=== PATIENT | female | born 1995 | race Caucasian/White ===

== ENCOUNTER 2025-03-28 12:00 | Emergency (ER) | payer OTHER, SELFPAY ==
[2025-03-28 12:06] VITALS: BP 158/116; PULSE 117; RESP 18; TEMP 36.6; O2SAT 100
[2025-03-28 12:54] VITALS: BP 129/79; PULSE 101
--- OUTSIDE RECORDS SUMMARY | 2025-03-28 13:08 | XMS_ITS | Data Portability ---
Author Organization [place] [facility], Main Office Address [address] [place] [address] Assessment Encounter Date Assessment Date Assessment LastModified by Organization Details LastModified Time 03/19/2024 03/19/2024 Assessment: Mild OSAHS, AHI = 9 Plan: The following were reviewed and explained to the patient: primary care/referral note Lisman diagnostic sleep study 02/17/22 sleep onset = 61 minutes, REM onset = 181.5 minutes, AHI = 9, PLMI = 0 PAP compliance downloaded and interpreted x 20 minutes. Data reviewed and explained to the patient. Average apnea/hypopnea index (AHI) is 0.5. Patient used PAP > 4 hours ?% of the time. PAP is set at 4-19.5 cmH2O. PAP will be reset at 4-10 cmH2O until re-titration sleep study is done. Oxygen supplementation: none Patient is benefiting from PAP therapy. Encouraged patient to maintain PAP use more than 70% of the time. Statement of PAP use and benefits will be sent to the home care store. Educated the patient on problems and solutions associated with positive airway pressure (PAP) use. Difficulty tolerating pressure, mask leaks, intolerance of interface, nasal congestion, claustrophobic response, dry mouth, and unintentional mask removal during sleep were covered. Patient has some difficulty tolerating pressure. Patient is advised to practice wearing PAP daily while awake, lower pressure with or without sleeping on sides, activate PAP ramp feature, have blower checked to make sure pressure is set as prescribed and return to sleep center for consideration of auto-adjusting PAP therapy. Provided the patient with a list of local home care stores where positive airway pressure (PAP) units, accoutrement, and services are available. Home care store selection is based on patient's insurance carrier. Patient will setup an appointment with [facility] for supplies and pressure adjustments. A major predictor of success with use of PAP is follow-up with both the respiratory supplier and the treating physician. The respiratory supplier optimally will follow-up within two weeks after starting use while the treating physician optimally will follow-up within 90 days after starting therapy to assess adherence and effectiveness of treatment. The download results can show the treating physician information about adherence to treatment, residual AHI while on treatment and presence of large mask leakage. This information is especially helpful if the patient has residual sleepiness despite treatment. General information on sleep disordered breathing, evaluation of sleep disordered breathing, treatment with PAP therapy, and living with PAP therapy were covered. We discussed with the patient the impact of weight on: Sleep disordered breathing Hypertension We discussed with the patient the benefit of PAP therapy on: Sleep disordered breathing Headaches Hypertension Educated the patient on sleep hygiene measures. Relaxing rituals to rest easy, understanding foods with positive and negative impact on sleep, creating a peaceful sleep environment, timing of exercise, using herbal sleep aids, and practicing sleep-friendly meditation were covered. To determine how much sleep is needed, the patient will assess where she falls on the spectrum, examine what lifestyle factors such as work schedules and stress are affecting the quality and quantity of sleep. In general, adults need 7-9 hours of sleep. Educated the patient regarding foods that promote sleep. These include but are not limited to cherries, bananas, toast, oatmeal, and warm milk. Educated the patient regarding foods and drinks to avoid before bedtime. These include but are not limited to aged cheese, chocolate, spicy foods, tomato-based sauces, soy, ginseng tea and processed meat. Advocated influenza vaccination annually and pneumonia vaccination DAVID. Advocated weight loss through diet and exercise. Patient's ideal body weight according to height and gender is up to Encouraged patient to adjust caloric intake to maintain/achieve ideal body weight, emphasizing on fruits, vegetables, whole grains, and fat-free or low-fat products. These include lean meats, poultry, fish, beans, eggs, and nuts and foods that are low in saturated fats, trans-fats, cholesterol, salt (sodium), and glycemic index. Stressed the importance of regular exercise up to the patient's capacity limits. In this case, we recommend 20 min daily walking, 2 days a week of resistance training. Patient to monitor BP daily and bring records to PCP for further management. Follow-up: 1 week after titration sleep study [email or web address] Not available 03/19/2024 10:10:26 05/12/2024 05/12/2024 Assessment: Rhinitis Mild OSAHS, AHI = 9 Plan: The following were reviewed and explained to the patient: [facility]isman diagnostic sleep study 02/17/22 sleep onset = 61 minutes, REM onset = 181.5 minutes, AHI = 9, PLMI = 0 [facility] titration sleep study 04/20/24 sleep onset = 27 minutes, REM onset = 101.5 minutes, Martinez [employer] Daria small Vitera full face mask @ 7 cmH2O, PLMI = 3 PAP compliance downloaded and interpreted x 20 minutes. Data reviewed and explained to the patient. Average apnea/hypopnea index (AHI) is 0.7. Patient used PAP > 4 hours 28% of the time. PAP is set at 4-10 cmH2O. PAP will remain at 4-10 cmH2O. Oxygen supplementation: none Patient is benefiting from PAP therapy. Encouraged patient to maintain PAP use more than 70% of the time. Statement of PAP use and benefits will be sent to the home care store. Educated the patient on problems and solutions associated with positive airway pressure (PAP) use. Difficulty tolerating pressure, mask leaks, intolerance of interface, nasal congestion, claustrophobic response, dry mouth, and unintentional mask removal during sleep were covered. Patient has some difficulty tolerating pressure. Patient is advised to practice wearing PAP daily while awake, lower pressure with or without sleeping on sides, activate PAP ramp feature, have blower checked to make sure pressure is set as prescribed and return to sleep center for consideration of auto-adjusting PAP therapy. Provided the patient with a list of local home care stores where positive airway pressure (PAP) units, accoutrement, and services are available. Home care store selection is based on patient's insurance carrier. Patient will setup an appointment with [facility] for supplies and pressure adjustments. A major predictor of success with use of PAP is follow-up with both the respiratory supplier and the treating physician. The respiratory supplier optimally will follow-up within two weeks after starting use while the treating physician optimally will follow-up within 90 days after starting therapy to assess adherence and effectiveness of treatment. The download results can show the treating physician information about adherence to treatment, residual AHI while on treatment and presence of large mask leakage. This information is especially helpful if the patient has residual sleepiness despite treatment. General information on sleep disordered breathing, evaluation of sleep disordered breathing, treatment with PAP therapy, and living with PAP therapy were covered. We discussed with the patient the impact of weight on: Sleep disordered breathing Hypertension We discussed with the patient the benefit of PAP therapy on: Sleep disordered breathing Headaches Hypertension Educated the patient on sleep hygiene measures. Relaxing rituals to rest easy, understanding foods with positive and negative impact on sleep, creating a peaceful sleep environment, timing of exercise, using herbal sleep aids, and practicing sleep-friendly meditation were covered. To determine how much sleep is needed, the patient will assess where she falls on the spectrum, examine what lifestyle factors such as work schedules and stress are affecting the quality and quantity of sleep. In general, adults need 7-9 hours of sleep. Educated the patient regarding foods that promote sleep. These include but are not limited to cherries, bananas, toast, oatmeal, and warm milk. Educated the patient regarding foods and drinks to avoid before bedtime. These include but are not limited to aged cheese, chocolate, spicy foods, tomato-based sauces, soy, ginseng tea and processed meat. Advocated influenza vaccination annually and pneumonia vaccination DAVID. Advocated weight loss through diet and exercise. Patient's ideal body weight according to height and gender is up to 135 lbs. Encouraged patient to adjust caloric intake to maintain/achieve ideal body weight, emphasizing on fruits, vegetables, whole grains, and fat-free or low-fat products. These include lean meats, poultry, fish, beans, eggs, and nuts and foods that are low in saturated fats, trans-fats, cholesterol, salt (sodium), and glycemic index. Stressed the importance of regular exercise up to the patient's capacity limits. In this case, we recommend 20 min daily walking, 2 days a week of resistance training. Patient to monitor BP daily and bring records to PCP for further management. Follow-up: 1 year, April 2025 [facility] Not available 05/12/2024 09:56:39 Plan of Treatment Reminders Order Date Submit Date Provider Last Modified By Organization Details Last Modified Time Details Appointments Any 15 2025 08:15A Jono Durham MD Not available Not available Not available Lab None recorded. Referral None recorded. Procedures None recorded. Surgeries None recorded. Imaging polysomno gram, titration study - Please call patient to schedule. 2023 024 [facility]AN[facility]A [facility], [address] [place], [address], 04/24/2024 08:53:10 Medication Orders None recorded. Patient TargetsNo targets recorded. Patient InstructionsNo instructions recorded. Reason for Referral None Reported. Results Created Date Observation Date Name Description Value Unit Range Abnormal Flag Note LastModifiedBy Organization Detail LastModifiedTime 03/18/2002/17/2022 polys omnog marlo, diagn ostic , 6 yrs or older No observ ation record ed. [facility] Not Available 2023 11:15:10 04/24/2004/20/2024 polys omnog marlo, titra tion study No observ ation record ed. BAR[facility] [address] [place], [address], 04/24/2024 08:53:10 Result Notes None recorded. Problems Name Problem SNOMED Code Status Onset Date Resolution Date Notes Provider Name and Address Organization Details Recorded Time Obstructive sleep apnea syndrome 15250177 Active 024 Remy Durham MD [address] [facility], [facility] [address], [place], [address] , [employer] 10:10:30 Notes:[facility] titration sleep s tudy 04/20/24 sleep onset = 27 minutes, REM onset = 101.5 minutes, [employer] small Vitera full face mask @ 7 cmH2O, PLMI = 3 Medical History: Migraine headaches Obesity with mild OSAHS, AHI = 9, 02/17/22, on CPAP Procedure History: Right shoulder surgery 2010 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 Procedures Surgical History Date Name Laterality Status Provider Name and Address Organization Details Recorded Time procedure on shoulder completed Kimberley Claros MA [employer] 03/19/2024 09:37:26 Imaging Results None recorded. Procedure Notes None recorded. Medical Equipment None Reported. Allergies No known drug allergies Medications Not known to be on any medication Vitals Date Recorded Heart rate Respiratory rate Provider N libby and Address Organization Details Last Updated DateTime 05/12/2024 85 /min 14 /min Remy Durham MD [address] [address], [place], [address], [facility] [employer] 05/12/2024 09:57:17 Date Recorded Body height Body mass index (BMI) Body weight Body temperature Heart rate Oxygen saturation Systolic And Diastolic Provider Name and Address Organization Details Last Updated DateTime 5 165.1 cm 36.9 kg/m2 490338. 51 g 98.1 [degF] 85 /min 99 % 122/78 mm[Hg] Kimberley Claros MA [facility] [employer] 5 09:27:47 Date Recorded Heart rate Respiratory rate Provider N libby and Address Organization Details Last Updated DateTime 03/19/2024 85 /min 15 /min Rmey Durham MD [address] [address], [place], [address], [facility] [employer] 03/19/2024 09:47:47 Date Recorded Body height Body mass index (BMI) Body weight Body temperature Heart rate Oxygen saturation Systolic And Diastolic Provider Name and Address Organization Details Last Updated DateTime 165.1 cm 36.1 kg/m2 35602.5 4 g 98 [degF] 85 /min 98 % 120/74 mm[Hg] Kimberley Claros MA [facility] [employer] 4 09:40:27 Social History Question Answer Notes LastModified by Organizat ion Details LastModified Time Tobacco Smoking Status Never Smoker Kimberley Claros MA [facility] [employer] 03/19/2024 09:34:27 What Is Your Level Of Caffeine Consumption? Moderate Information not available 03/19/2024 In The 14 Days Before Symptom Onset, Have You Had Close Contact With A Laboratory-confi rmed COVID-19 While That Case Was Ill? No Information not available 03/19/2024 In The 14 Days Before Symptom Onset, Have You Had Close Contact With A Person Who Is Under Investigation For COVID-19 While That Person Was Ill? No Information not available 03/19/2024 What Type Of Diet Are You Following? REGULAR Information not available 03/19/2024 Do You Have An Electrostatic Air Filter? No Information not available 03/19/2024 Do You Have A Humidifier? No Information not available 03/19/2024 Do You Have Moisture Problems In Your Home? No Information not available 03/19/2024 What Was The Date Of Your Most Recent Tobacco Screening? 05/12/2024 Information not available 05/12/2024 Do You Have Any Pets? Yes Information not available 03/19/2024 Do You Use Your Seat Belt Or Car Seat Routinely? Yes Information not available 03/19/2024 Do You Have Smoke And Carbon Monoxide Detectors In Your Home? Yes Information not available 03/19/2024 Are You Passively Exposed To Smoke? No Information not available 03/19/2024 Do You Use Sunscreen Routinely? No Information not available 03/19/2024 Have You Recently Traveled Abroad? No Information not available 03/19/2024 Do You Have Any Dietary Restrictions? No Information not available 03/19/2024 Sex: Unknown Functional Status Question Answer Note LastModified by Organizat ion Details LastModified Time Do you use any illicit or recreational drugs? No Information not available 03/19/2024 Do you or have you ever used any other forms of tobacco or nicotine? No Information not available 03/19/2024 What is your level of alcohol consumption? None Information not available 03/19/2024 Are you currently employed? Yes Information not available 03/19/2024 Have you been exposed to chemicals or toxins? 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 Occasional Information not available 03/19/2024 Mental Status Question Answer Note LastModified by Organization D etails LastModified Time Do you feel stressed (tense, restless, nervous, or anxious, or unable to sleep at night)? [id number] Information not available 03/19/2024 Family History Relationship Description Onset Age of this Age Resolved Age Notes LastModified by Organization Details LastModified Time Father Diabetes mellitus [email or web address] Not available 2023 12:53:34 Father Hypertensive disorder [email or web address] Not available 2023 12:54:04 Father Obstructive sleep apnea syndrome [email or web address] Not available 2023 09:58:44 Mother Diabetes mellitus [email or web address] Not available 2023 12:53:54 Mother Hyperthyroid ism [email or web address] Not available 2023 12:54:17 Maternal Grandmother Malignant neoplasm of colon [email or web address] Not available 2023 09:59:00 Maternal Grandmother Diabetes mellitus [email or web address] Not available 2023 09:59:20 Maternal Grandfather Malignant neoplasm of lung [email or web address] Not available 2023 09:59:09 Medical History No medical history recorded. Gynecological HistoryNo gynecological history recorded. Obstetrics History GPAL:G 0 P 0 0 0 0 Past Encounters Encounter ID Performer Location Encounter Start Date Encounter Closed Date Diagnosis/Indication Diagnosis SNOMED-CT Code Diagnosis ICD10 Code Diagnosis IMO Codes Diagnosis Note [id number] Remy Durham MD [place] [address] 03/19/2024 09:20:36 04/28/2024 11:54:44 Obstructive sleep apnea syndrome 23855487 G47.33 [id number] Remy Durham MD [address] [address] 05/12/2024 09:16:20 05/12/2024 11:20:41 Obstructive sleep apnea syndrome 01727520 G47.33 Health Concerns Section Related Observation LastModified by Organization Detai ls LastModified Time None Recorded Concern Status LastModified by Organization Details LastModified Time None Recorded Advance Directives Directive None Recorded Payers Insurance Date Sequence Insurance Name Policy Number Policy Centeno Covered Member ID Centeno Member ID Guarantor Name 05/14/2024 1 [facility] () Aide Pablo [id number] Aide Pablo 05/12/2024 1 [facility] () Aide Pablo [id number] Aide Pablo 03/19/2024 1 *SELF PAY* Dino Pablo Notes Date Note Type Note Provider Name and Address Organization Details Recorded Time 03/19/2024 text/html Primary care/Referring provider: MABEL Flores CC: I feel like the CPAP mask is being lifted and the pressure is too strong, since 04/2023. At home since 03/19/22, the patient uses a ResVent iBreeze unit with heated humidification. The patient does not need the ramp to start low and go up slowly on the pressure anymore. There is no xerostomia in a.m. There is no hose/mask condensation with water.The patient wears a ResMed small AirTouch F20 full face mask without chin strap. There is no claustrophobia, no nostril/nose bridge irritation, no facial rash, no facial numbness, no nosebleeding. The patient feels more refreshed upon waking and daytime alertness is improved. Energy levels are sustained for the remainder of the day. At home, the patient sleeps from 10:30 pm to 7 am and wakes up with an alarm. Snoring: moderate, since .Snorting: noChoking: noCoughing: noGasping: noGagging: noSighing: noWitnessed apnea: yesTwitching or jerking of leg(s), arm(s), body, head: noTeeth grinding: noTeeth clenching: noSleeptalking: noSleepwalking: noSleep crying: noBedwetting: noTongue/lip/gum/cheek biting: noSleeping with open mouth: yesSleep paralysis: noHypnagogic hallucinations: noHypnopompic hallucinations: noVivid dreams: noDifficulty with sleep onset: noDifficulty with sleep maintenance: yesSleep interruptions: nocturia x 1 per weekPatient wakes up with: fatigue, headachesDaytime cataplexy: noMorning hypersomnolence: yesAfternoon hypersomnolence: yesCaffeine sources in diet: coffee 1 glass per day, tea 1/3 glass per day Associated medical and psychiatric conditions:Congestive heart failure: noCoronary artery disease: noMyocardial infarction: noHypertension: noStroke: noBronchial asthma: noChronic obstructive pulmonary disease: noDepression: yesBipolar disorder: noAnxiety: noPanic disorder: noPosttraumatic stress disorder: noAttention deficit and hyperactivity disorder: noObsessive Compulsive disorder: noSchizophrenia: noSchizoaffective disorder: noPersonality disorder: noChronic analgesic use: noChronic sedative/hypnotic use: no EPWORTH SLEEPINESS SCALE (ESS) CHANCE OF DOZING SCORE0 = would never doze1 = slight chance of dozing2 = moderate chance of dozing3 = high chance of dozing SITUATION AND CHANCE OF DOZINGSitting and reading - 1Watching television - 1Sitting inactive in a public place (e.g. a theater or meeting) - 0As a passenger in a car for an hour without a break - 0Lying down to rest in the afternoon when circumstances permit - 1Sitting and talking to someone - 0Sitting quietly after lunch without alcohol - 0In a car, while stopped for a few minutes in the traffic - 0TOTAL SCORE 3Subjectively, patient has a slight moderate high chance of dozing. Remy Durham MD [address] [place] [address], [phone], [place] [facility] 03/19/2024 10:17:48 05/12/2024 text/html Primary care/Referring provider: MABEL Flores CC: The CPAP mask is no longer being lifted and the pressure is alright now. At home since 03/19/24, the patient uses a ResVent iBreeze unit with heated humidification. The patient does not need the ramp to start low and go up slowly on the pressure anymore. There is no xerostomia in a.m. There is no hose/mask condensation with water.The patient wears a ResMed small AirTouch F20 full face mask without chin strap. There is no claustrophobia, no nostril/nose bridge irritation, no facial rash, no facial numbness, no nosebleeding. The patient feels more refreshed upon waking and daytime alertness is improved. Energy levels are sustained for the remainder of the day. At home, the patient sleeps from 10:30 pm to 7 am and wakes up with an alarm. Snoring: moderate, since .Snorting: noChoking: noCoughing: noGasping: noGagging: noSighing: noWitnessed apnea: yesTwitching or jerking of leg(s), arm(s), body, head: noTeeth grinding: noTeeth clenching: noSleeptalking: noSleepwalking: noSleep crying: noBedwetting: noTongue/lip/gum/cheek biting: noSleeping with open mouth: yesSleep paralysis: noHypnagogic hallucinations: noHypnopompic hallucinations: noVivid dreams: noDifficulty with sleep onset: noDifficulty with sleep maintenance: yesSleep interruptions: nocturia x 1 per weekPatient wakes up with: fatigue, headachesDaytime cataplexy: noMorning hypersomnolence: yesAfternoon hypersomnolence: yesCaffeine sources in diet: coffee 1 glass per day, tea 1/3 glass per day Associated medical and psychiatric conditions:Congestive heart failure: noCoronary artery disease: noMyocardial infarction: noHypertension: noStroke: noBronchial asthma: noChronic obstructive pulmonary disease: noDepression: yesBipolar disorder: noAnxiety: noPanic disorder: noPosttraumatic stress disorder: noAttention deficit and hyperactivity disorder: noObsessive Compulsive disorder: noSchizophrenia: noSchizoaffective disorder: noPersonality disorder: noChronic analgesic use: noChronic sedative/hypnotic use: no EPWORTH SLEEPINESS SCALE (ESS) CHANCE OF DOZING SCORE0 = would never doze1 = slight chance of dozing2 = moderate chance of dozing3 = high chance of dozing SITUATION AND CHANCE OF DOZINGSitting and reading - 2Watching television - 1Sitting inactive in a public place (e.g. a theater or meeting) - 0As a passenger in a car for an hour without a break - 1Lying down to rest in the afternoon when circumstances permit - 1Sitting and talking to someone - 0Sitting quietly after lunch without alcohol - 0In a car, while stopped for a few minutes in the traffic - 0TOTAL SCORE 5Subjectively, patient has a slight chance of dozing. Remy Durham MD [address] [place] [address], [phone], [facility] 05/12/2024 09:59:54 OBGyn Episode No OBEpisode recorded.
--- OUTSIDE RECORDS SUMMARY | 2025-03-28 13:08 | XMS_ITS | Clinical Summary ---
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 [] Full [facility] Care; [] Red Team [x] Blue Team Referring Provider: SEAN MENDENHALL [id number] [x] or Medicare Insurance [x] Dating Criteria: LMP:10/08/24 SCOTT: 07/15/25 [x] Labs: Rh [O-], Ab [NEG], Rubella [immune], HIV [NEG], HepBSAg [NEG], HepBSAb [not done], HepBCAb [non-reactive], RPR [non-reactive], Hep C [non- reactive], Varicella [positive], GC/CT [NEG] [] Aneuploidy Screening: being drawn with primary OB [x] Carrier Screening: SMA/CF[negative] [x] Hgb electrophoresis: negative per carrier screening [x] CBC/Hgb: 13.1/40/plt 356 [x] Early 1hr GTT (if indicated): 12/18/24: 92 [x] UCx: mixed genital adriana [x] Pap: NILM:02/2022 [x] LD ASA (if indicated): [] EPDS [ ]; PNBHS referral (if indicated): 2nd Trimester [x] Anatomy ultrasound: completed 02/26 [] CBC/1hr gtt at 24-28wks: [] Rhogam at 28 wks (if Rh neg): 3rd Trimester [] CBC/HIV/RPR/T&S: [] GBS: [] GC/CT (if indicated): [] testing: Counseling [] MOD: [] Place of delivery: with primary [] Epidural: [] Accepts Blood Products: [] Stop ASA: [] MOC: [] Method of feeding: [] Transition Assistant (specifically which provider): [] PP Depression Discussed: [] PP visits scheduled: Vaccines [] Flu Shot (Dec-Mar): [] COVID vaccine: [] Tdap (27-36wks): [] RSV vaccine (32-36wks): [] PP HPV vaccine counseling (<=26 yo): Assessment & Plan (02/26/2025 11:25 AM CDT): Unremarkable anatomy survey today. Continue co-management of care with primary OB History of delivery, currently 01/05/2025 Overview (02/26/2025): History: G1 was term . G2 patient presented with ROM and spontaneous labor at 35weeks, quickly progressed and had . Baby briefly in NICU but did well. S/p counseling 01/08/2025 Plan: [x] Serial transvaginal cervical length ultrasounds every 2 weeks 16-24 weeks - patient has these scheduled with primary OB [x] Patient would like to defer vaginal progesterone s/p counseling Assessment & Plan (02/26/2025 11:24 AM CDT): Normal TVCL today Plan: [x] Serial transvaginal cervical length ultrasounds every 2 weeks 16-24 weeks - patient has these scheduled with primary OB [x] Patient would like to defer vaginal progesterone s/p counseling Chronic hypertension affecting 025 Overview (03/17/2025): History: Diagnosed prior to second during work up for LACEY. Has not required medications. S/p counseling 01/08/2025 CHTN Current regimen: 03/17/2025 - no changes Nifedipine XL 30mg daily Plan: [] Maintain BP log, patient to send to [facility] for weekly review via Pyre[facility] [x] Low dose ASA 81 mg starting at 12 weeks [] Baseline preeclampsia labs (CBC, CMP, UPC) - to be done with primary [] Baseline EKG - to be done with primary [] Serial growth ultrasounds every 4 weeks starting at 24 weeks [] Weekly surveillance starting at 32 weeks if on antihypertensives [] Delivery at 37w0d - 39w6d is recommended, (with the possibility of earlier delivery for uncontrolled hypertension or preeclampsia) Assessment & Plan (02/26/2025 11:24 AM CDT): Was out of Nifedipine for the past week. Refilled rx two days ago. Will send updated log in approx 1 week. Patient is asymptomatic. Current regimen: 02/26/2025 - no changes Nifedipine XL 30mg daily Plan: [] Maintain BP log, patient to send to [facility] for weekly review via Pyre[facility] [x] Low dose ASA 81 mg starting at 12 weeks [] Baseline preeclampsia labs (CBC, CMP, UPC) - to be done with primary [] Baseline EKG - to be done with primary [] Serial growth ultrasounds every 4 weeks starting at 24 weeks [] Weekly surveillance starting at 32 weeks if on antihypertensives [] Delivery at 37w0d - 39w6d is recommended, (with the possibility of earlier delivery for uncontrolled hypertension or preeclampsia) Assessment & Plan (01/08/2025 9:52 AM CDT): BP 144/97 today. Discussed monitoring Bps at home and that we may need to initiate an anithypertensive if Bps remain in this range LACEY (obstructive sleep apnea) 01/05/2025 Overview (01/08/2025): Using CPAP at home. We would recommend following up with her physician to ensure she has the correct CPAP setting. Over time, sleep apnea lowers your blood-oxygen levels which can increase the risk of hypertension, obesity, depression, and heart failure. Women with under treated sleep apnea are more likely to develop gestational diabetes and preeclampsia. Studies have shown that women maybe at higher risk of complications as well. Assessment & Plan (02/26/2025 11:24 AM CDT): No issues with CPAP Estimated Date of Delivery Comme nts Yes 07/15/2025 Based on last me nstrual period of 10/08/2024 Encounters Date Type Department Care Team Description 02/26/2025 11:00 AM CDT Office Visit [facility] [place] [facility] [address] [place] [phone] Chronic hypertension affecting (Primary Dx); History of delivery, currently ; LACEY (obstructive sleep apnea); Supervision of high risk in second trimester 02/26/2025 10:00 AM CDT Ancillary Procedure [facility] Obstetrics and Gynecology [address] [place] [address] [address] [place] [phone] Supervision of high risk in first trimester 01/16/2025 Orders Only [facility] Medicine Maternal- Medicine [address] Office Building [address] [place] [phone] Sole Mcallister, RN 01/16/2025 Telephone [facility] Medicine Maternal- Medicine [address] Office [address] [place] [phone] Sole Mcallister, RN M BP LOG 01/08/2025 9:15 AM CDT Office Visit [facility] Medicine [facility] Obstetrics and Gynecology [address] [place] [phone] Supervision of high risk in first trimester (Primary Dx); History of delivery, currently ; Chronic hypertension affecting ; LACEY (obstructive sleep apnea) 12/26/2024 9:45 AM CDT Ancillary Procedure [facility] Medicine [facility] Obstetrics and Gynecology [address] [place] [phone] Supervision of high-risk , unspecified trimester from Last 3 Months Social History Tobacco Use Types Packs/Day Years Used Date Smoking Tobacco: Never Smokeless Tobacco: Never Tobacco Cessation:Counseling Given: Not Answered Estimated Date of Delivery Comme nts Yes 07/15/2025 Based on last me nstrual period of 10/08/2024 Sex and Gender Information Value Date Recorded Sex Assigned at Not on file 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 Gender Identity Not on file Sexual Orientation Not on file Obstetrics History Para Term AB IAB SAB Ectopic Multiple Livin g Live Births 3 2 1 1 1 1 Date Outcome GA Total Labor Labor/2nd/3rd Weight Sex Type Anes PTL Elma A1 A5 Name Clin 2019 Term Vag-S pont 2023 35w 1d 28h 43m 28h 25m/0h 18m 3.3 kg (7 lb 4.4 oz) F Vag-S pont Epidur al Y Livin g 8 9 Wen Chelsea Nur n Consuelobe rly E Macy le DO Complications:None Delivery Location:[facility] ([facility]) Current Summary Episode Dates Number of Fetuses Estimated Date of Delivery 01/05/2025 - Present (03/28/2025) 07/15/2025 (set by Grace Boles MD on 01/08/2025 based on Last Menstrual Period on 10/08/2024) Dating Summary Based On SCOTT [place] Diff Last Menstrual Period on 10/08/2024 07/15/2025 Working Vitals Pregravid Weight Height TWG (As of 03/28/2025) Pregrav id BMI 165.1 cm (5' 5) Notes Progress Notes - Office Visi t - 02/26/2025 - GA:20w1d 02/26/2025 - 20w1d - Sariah, Marcela Ramachandran MD MFM Return Consult Visit 02/26/[address] Mendenhall, It was a pleasure meeting again with our mutual patient in continued consultation. Aide Pablo is a 29 y.o. at 20w1d whose is complicated by h/o delivery at 35 weeks, LACEY and CHTN. Subjective: She reports no complaints. Did not take Nifedipine for about 1 week due to pharmacy issues. Restarted medication two days ago. Cervical length surveillance is ongoing with primary OB. Wishes to defer vaginal progesterone for now. No cramping or contractions. No VB or LOF. Feeling some movement. Objective: BP 138/91 Pulse 90 Ht 165.1 cm (5' 5) Wt 239 lb 3.2 oz (108.5 kg) LMP 10/08/2024 SpO2 100% BMI 39.80 kg/m General: NAD Abdomen: Gravid Ultrasound: 02/26/2025 Single IUP at 20w 1d for anatomic assessment. 1. The biometry is appropriate for gestational age. 2. No major structural malformations or markers of aneuploidy identified within the limits of ultrasound. Ultrasound may not detect all anomalies. 3. Transvaginal imaging demonstrates a normal cervical length. Assessment/Plan: Aide Pablo is a 29 y.o. at 20w1d with a complicated by the following: Chronic hypertension affecting Was out of Nifedipine for the past week. Refilled rx two days ago. Will send updated log in approx 1 week. Patient is asymptomatic. Current regimen: 02/26/2025 - no changes Nifedipine XL 30mg daily Plan: [] Maintain BP log, patient to send to [facility] [x] Low dose ASA 81 mg starting at 12 weeks [] Baseline preeclampsia labs (CBC, CMP, UPC) - to be done with primary [] Baseline EKG - to be done with primary [] Serial growth ultrasounds every 4 weeks starting at 24 weeks [] Weekly surveillance starting at 32 weeks if on antihypertensives [] Delivery at 37w0d - 39w6d is recommended, (with the possibility of earlier delivery for uncontrolled hypertension or preeclampsia) History of delivery, currently Normal TVCL today Plan: [x] Serial transvaginal cervical length ultrasounds every 2 weeks 16-24 weeks - patient has these scheduled with primary OB [x] Patient would like to defer vaginal progesterone s/p counseling LACEY (obstructive sleep apnea) No issues with CPAP Supervision of high risk in second trimester Unremarkable anatomy survey today. Continue co-management of care with primary OB Thank you for your consultation. Please don't hesitate to contact me with any questions. We will continue to follow along with Ms. Aide Pablo , and will plan to see her back in 4-5 weeks for a MFM visit and ultrasound. Marcela Rolle MD Maternal Medicine 02/26/2025 Progress Notes - Office Visi t - 01/08/2025 - GA:13w1d 01/08/2025 - 13w1d - Grace Osman MD Images from the original note were not included. Maternal Medicine Consult Note Reason for Consult: History of delivery, chtn, LACEY Requesting Provider: Dr Mendenhall Dear Dr. Mendenhall, We had the pleasure of seeing your patient Aide Pablo in our office today. As you know, she is a 29 y.o. at 13w1d here today for a consult regarding a history of a 35 week delivery. Her is also complicated by LACEY and chronic HTN . Today she is doing well, she has no complaints. PMH: Chronic hypertension, LACEY PSH: Shoulder surgery Past Gynecologic History: Prior STIs: Denies History of abnormal pap: Denies Last pap smear: Patient thinks 2022 Patient's last menstrual period was 10/08/2024. Denies history of uterine anomalies or fibroids OB History Para Term AB Living 3 2 1 1 1 SAB IAB Ectopic Multiple Live Births 1 # Outcome Date GA Lbr Nirav/2nd Weight Sex Type Anes PTL Lv 3 Current 2 09/11/23 35w1d 28:25 3.3 kg (7 lb 4.4 oz) F Vag-Spont EPI Y ELMA 1 Term 05/15/19 Vag-Spont Current Outpatient Medications Medication Sig Dispense Refill aspirin 81 mg enteric coated tablet PNV no.95/ferrous fum/folic ac ( ORAL) Take by mouth No current facility-administered medications for this visit. Family History: Neural tube defects: No Down syndrome or other chromosomal anomalies: No Hemophilia, sickle cell, bleeding/clotting disorder: No Muscular dystrophy: No Cystic fibrosis: No Intellectual disability or Fragile X: No Weston disease: No Other defects or genetic disorders: 's niece with hole in heart No Known Allergies Social History Tobacco Use Smoking status: Never Smokeless tobacco: Never Substance and Sexual Activity Drug use: None Sexual activity: None Alcohol Use: Not At Risk (09/11/2023) Received from [facility] AUDIT-C Q1: How often do you have a drink containing alcohol?: Never Q2: How many drinks containing alcohol do you have on a typical day when you are drinking?: Patient does not drink Q3: How often do you have six or more drinks on one occasion?: Never Review of Systems Constitutional: Negative. Respiratory: Negative. Cardiovascular: Negative. Gastrointestinal: Negative. Genitourinary: Negative. Musculoskeletal: Negative. Neurological: Negative. Psychiatric/Behavioral: Negative. Physical Exam Vitals BP 144/97 Pulse 115 Ht 165.1 cm (5' 5) Wt 232 lb 12.9 oz (105.6 kg) LMP 10/08/2024 BMI 38.74 kg/m Constitutional: NAD, well appearing CV: regular rate RESP: Normal respiratory effort Neurologic: alert and moves all extremities Psychiatric: Alert and appropriate affect Extr: Non edematous Ultrasound 12/26: single IUP with cardiac acitivity, S=D Please see the separate report for full details Assessment: Ms. Aide Pablo is a 29 y.o. at 13w1d here today for a consult regarding: Recommendations: Problem History of Delivery, Currently History: G1 was term . G2 patient presented with ROM and spontaneous labor at 35weeks, quickly progressed and had . Baby briefly in NICU but did well. Counseling 01/08/2025: Discussed that in the setting of a previous delivery, this is at risk for a subsequent delivery. This risk of (PTB) is highest when the most recent was complicated by PTB or if the patient has a history of multiple PTBs. After one PTB, the risk of a recurrent PTB is as high as 30%. In the majority of cases, a recurrent PTB will occur at a similar gestational age as the previous . We reviewed the option for serial transvaginal ultrasounds to evaluate cervical length and estimate the risk of delivery starting at 16 weeks every 2 weeks until 24 weeks in patients with a history of spontaneous PTB or PPROM. We discussed that in the event of cervical shortening <2.5 cm, the risk of spontaneous delivery is increased and that cerclage placement has been shown to prolong and improve outcomes. We also discussed the possibility of daily vaginal progesterone for prevention of from 16 to 36 weeks. At this time, data is mixed regarding efficacy of vaginal progesterone in prevention for . Therefore, the decision to use vaginal progesterone for prevention of recurrent PTB should be made by shared decision making at this time. IM progesterone ([place]) is no longer recommended after the PROLONG trial and has been removed from the market by the FDA. Plan: [] Serial transvaginal cervical length ultrasounds every 2 weeks 16-24 weeks - patient has these scheduled with primary OB [] Patient would like to defer vaginal progesterone for now, she will continue to consider Chronic Hypertension Affecting History: Diagnosed prior to second during work up for LACEY. Has not required medications. Counseling 01/08/2025: We counseled the patient that chronic hypertension is associated with an increased risk of adverse outcomes, including growth restriction and stillbirth. Additionally, we discussed that hypertension is associated with development of superimposed preeclampsia with severe features and placental abruption, which can result in iatrogenic delivery in up to 30% of individuals with mild chronic hypertension. Baseline serum preeclampsia labs (CBC, creatinine, BUN, AST, ALT) are recommended in all patients with a history of hypertension. A workup for end organ damage is also recommended, including an EKG and urine protein/creatinine ratio. A fundoscopic exam by ophthalmology is recommended as well, if one has not been performed within the last 12 months. Low dose aspirin is recommended to start at 12 weeks for preeclampsia prophylaxis. Preeclampsia symptoms (headache, scotomata, epigastric pain) were reviewed. We reviewed the course of blood pressures in , specifically that patients usually experience a decrease in systemic pressure in the first trimester followed by a gradual rise starting at around 28 weeks. Recent data from the CHAP study recommends a treatment BP goal of <140/90 antepartum to improve maternal and outcomes, especially in reducing the risk of preeclampsia. Mildly elevated blood pressures in patients with chronic hypertension have not been associated with poor outcomes in the fetus or the mother. However, a preeclampsia workup would be recommended if blood pressures are elevated and significantly above usual baseline or in the severe range for . Current regimen: 01/08/25 no meds Plan: [] Maintain BP log, patient to send to [facility] for weekly review via Pyre[facility] [x] Low dose ASA 81 mg starting at 12 weeks [] Baseline preeclampsia labs (CBC, CMP, UPC) - to be done with primary [] Baseline EKG - to be done with primary [] Serial growth ultrasounds every 4 weeks starting at 24 weeks [] Weekly surveillance starting at 32 weeks if on antihypertensives [] Delivery at 37w0d - 39w6d is recommended, (with the possibility of earlier delivery for uncontrolled hypertension or preeclampsia) Lacey (Obstructive Sleep Apnea) Using CPAP at home. We would recommend following up with her physician to ensure she has the correct CPAP setting. Over time, sleep apnea lowers your blood-oxygen levels which can increase the risk of hypertension, obesity, depression, and heart failure. Women with under treated sleep apnea are more likely to develop gestational diabetes and preeclampsia. Studies have shown that women maybe at higher risk of complications as well. Patient to send in BP log next week. Planning for serial CL with primary OB. Return for anatomy US and CL assessment at time of anatomy US at 18-20 weeks. Precautions reviewed. Thank you for the opportunity to be involved in the care of your patient. Should you have any further questions or concerns, please do not hesitate to call us. Grace Boles MD MS Maternal Medicine A total of 60 minutes were spent for this visit, 45 minutes were spent with the patient during the visit and 15 minutes were spent in documentation. Progress Notes - Abstract - 01/05/2025 - GA:12w5d 01/05/2025 - wd - Libia Pham RMA Most of her labs wasn't completed I sent a request for rest of her labs once there're completed along with her dating ultrasound. Once I get her results I will update her problem list. Last Filed Vital Signs Vital Sign Reading Time Taken Comments Blood Pressure 138/91 02/26/2025 11:05 AM CDT Pulse 90 02/26/2025 11:05 AM CDT Temperature - - Respiratory Rate - - Oxygen Saturation 100% 02/26/2025 11: 05 AM CDT Inhaled Oxygen Concentration - - Weight 108.5 kg (239 lb 3.2 oz) 025 11:05 AM CDT Height 165.1 cm (5' 5) 02/26/2025 11:0 5 AM CDT Body Mass Index 39.8 02/26/2025 11:05 AM CDT Plan of Treatment Health Maintenance Due Date Last Done Comments Cervical Cancer Screening 1993 Depression Screening 1993 Hepatitis C Screening 1993 DTaP/Tdap/Td Vaccine (1 - Tdap) 2004 Varicella Vaccines (1 of 2 - 13+ 2-dose series) 2006 Hepatitis B Screening 08/31/2011 Regular Well Visit/Exam 18-64 08/31/2011 Pneumococcal vaccine <65 (1 of 2 - PCV) 2012 HPV Vaccines (1 - 3-dose SCDM series) 2020 Influenza Vaccine (#1) 2024 Procedures Procedure Name Priority Date/Time Associated Diagnosis Comments US OB DETAIL ANATOMY SINGLE OR FIRST GESTATION Schedule Routine, Read Routine (OP Routine) 02/26/2025 9:42 AM CDT Supervision of high risk in first trimester US OB LIMITED Schedule Routine, Read Routine (OP Routine) 12/26/2024 9:20 AM CDT Supervision of high-risk , unspecified trimester from Last 3 Months Results * US Ob Detail Anatomy Single Or First Gestation (02/26/2025 9:42 AM CDT) Fetus# Fetus1 VIEWPOINT Estimated Weight 425 g&grams VIEWPOINT Placenta Details posterior, Previa-no, no placental masses VIEWPOINT Presentation Variable VIEWPOINT Anatomical Region Laterality Modality Body N/A Ultrasound 02/26/2025 9:45 AM CDT Impressions 02/26/2025 11:08 AM CDT Single IUP at 20w 1d for anatomic assessment. 1. The biometry is appropriate for gestational age. 2. No major structural malformations or markers of aneuploidy identified within the limits of ultrasound. Ultrasound may not detect all anomalies. 3. Transvaginal imaging demonstrates a normal cervical length. Narrative Procedure Note Marcela Rolle MD - 02/26/2025 IMPRESSION: Single IUP at 20w 1d for anatomic assessment. 1. The biometry is appropriate for gestational age. 2. No major structural malformations or markers of aneuploidyidentified within the limits of ultrasound. Ultrasound may notdetect all anomalies. 3. Transvaginal imaging demonstrates a normal cervical length. us Grace Boles MD IMG OB US PROCEDURES Final Result * US Ob Limited (12/26/2024 9:20 AM CDT) Fetus# Fetus1 VIEWPOINT Placenta Details posterior VIEWPOINT Anatomical Region Laterality Modality Abdomen N/A Ultrasound 12/26/2024 9:21 AM CDT Impressions 12/26/2024 9:51 AM CDT IUP at 11w 2d for evaluation of first trimester [place] fetus with CRL consistent with menstrual dating. Normal cardiac activity. Normal ovaries bilaterally. Narrative Procedure Note Anita Eng MD - 12/26/2024 IMPRESSION: IUP at 11w 2d for evaluation of first trimester [place] fetus with CRL consistent with menstrual dating. Normal cardiac activity. Normal ovaries bilaterally. us Sean Mendenhall DO IMG OB US PROCEDURES Natasha l Result from Last [address] [facility] Care Teams Surface Miner Relationship Specialty Start Date End Date No, Physician PCP - General 06/14/23
--- OUTSIDE RECORDS SUMMARY | 2025-03-28 13:08 | XMS_ITS | Clinical Summary ---
Author Organization [facility] Address [facility] [place] [address] Care Team Providers Care Behavior Analyst Name Role Phone Unavailable Primary Care Provider Unavailabl e Allergies No known active allergies Medications acetaminophen (TYLENOL) 500 MG tablet Take 2 tablets (1,000 mg total) by mouth every 6 (six) hours as needed for Pain. 30 tablet 4 Active benzocaine-ment hol (DERMOPLAST) 20-0.5 % Aerosol Apply 1 spray topically 4 (four) times daily as needed (Perineal discomfort). 78 g 1 4 Active ibuprofen (MOTRIN) 600 MG tablet Take 1 tablet (600 mg total) by mouth every 6 (six) hours as needed for Pain. 40 tablet 4 Active polyethylene glycol (GLYCOLAX) 17 GM/SCOOP powder Take 17 g by mouth daily. Dissolve powder in 240 mL water 255 g 2 4 Active cholecalciferol (VITAMIN D3) 10 mcg/mL Liquid liquid Take 1 mL (10 mcg total) by mouth daily. For . 120 mL 2 4 Active Active Problems No known active problems Resolved Problems Problem Noted Date Diagnosed Date Resolved Date Uterine contractions during 09/10/2023 09/11/2023 Family History Medical History Relation Comments Diabetes Father Cancer Maternal Grandfather Colon Cancer Maternal Grandmother Diabetes Maternal Grandmother Lung Cancer Maternal Grandmother Diabetes Mother Relation Status Comments Father Alive Maternal Grandfather Maternal Grandmother Mother Alive Social History Tobacco Use Types Packs/Day Years Used Date Smoking Tobacco: Never Passive Smoke Exposure: Never Smokeless Tobacco: Never Tobacco Cessation:Counseling Given: Not Answered Alcohol Use Standard Drinks/Week Comments Not Currently 0 (1 standard drink = 0.6 oz pur e alcohol) B1300 Health Literacy Answer Date Recor ded How often do you need to hav e someone help you when you read instructions, pamphlets, or other written material from your doctor or pharmacy? Never 09/11/2023 [facility] Utilities Answer Date Recorded In the past 12 months has e electric, gas, oil, or water company threatened to shut off services in your home? No 09/11/2023 Humiliation, Afraid, Rape, and Kick questionnair e Answer Date Recorded Within the last year, have y ou been afraid of your partner or ex-partner? No 09/11/2023 Within the last year, have y ou been humiliated or emotionally abused in other ways by your partner or ex-partner? No Within the last year, have y ou been kicked, hit, slapped, or otherwise physically hurt by your partner or ex-partner? No 09/11/2023 Within the last year, have y ou been raped or forced to have any kind of sexual activity by your partner or ex-partner? No 09/11/2023 Social Connection and Isolation Panel Answer Date Recorded In a typical week, how many times do you talk on the phone with family, friends, or neighbors? More than three times a week 09/11/2023 How often do you get togethe r with friends or relatives? Patient declined 09/11/2023 How often do you attend [facility] or synagogue services? Patient declined 09/11/2023 Do you belong to any clubs o r organizations such as hinduism groups, unions, fraternal or athletic groups, or school groups? No 09/11/2023 How often do you attend meet ings of the clubs or organizations you belong to? Never 09/11/2023 Are you , , di vorced, , never , or living with a partner? 09/11/2023 AUDIT-C Answer Date Recorded Q1: How often do you have a drink containing alcohol? Never 09/11/2023 Q2: How many drinks containi ng alcohol do you have on a typical day when you are drinking? Patient does not drink Q3: How often do you have si x or more drinks on one occasion? Never 09/11/2023 Overall Financial Resource Strain (CARDIA) Answe r Date Recorded How hard is it for you to pa y for the very basics like food, housing, medical care, and heating? Not hard at all 09/11/2023 PHQ-2 Answer Date Recorded Patient Health Questionnaire-2 Score 0 09/11/2023 [facility] - Occupational Stress Questionnaire Answer Date Recorded Do you feel stress - tense, restless, nervous, or anxious, or unable to sleep at night because your mind is troubled all the time - these days? Not at all 09/11/2023 Exercise Vital Sign Answer Date Recorde d On average, how many days pe r week do you engage in moderate to strenuous exercise (like a brisk walk)? Patient declined On average, how many minutes do you engage in exercise at this level? Patient declined 09/11/2023 Hunger Vital Sign Answer Date Recorded Within the past 12 months, y ou worried that your food would run out before you got the money to buy more. Never true 09/11/19 24 Within the past 12 months, t he food you bought just didn't last and you didn't have money to get more. Never true 09/11/2023 PRAPARE - Transportation Answer Date Re corded In the past 12 months, has l ack of transportation kept you from medical appointments or from getting medications? No 08/28 In the past 12 months, has l ack of transportation kept you from meetings, work, or from getting things needed for daily living? No 09/11/2023 Housing Stability Vital Sign Answer Pablo e Recorded In the last 12 months, was t here a time when you were not able to pay the mortgage or rent on time? No 09/11/2023 In the past 12 months, how m any times have you moved where you were living? 2 09/11/2023 At any time in the past 12 m [facility], were you homeless or living in a alf (including now)? No 09/11/2023 Comments No Sex and Gender Information Value Date Recorded Sex Assigned at Not on file Legal Sex Female 9:20 PM CDT Gender Identity Not on file Sexual Orientation Not on file Last Filed Vital Signs Vital Sign Reading Time Taken Comments Blood Pressure 126/87 09/11/2023 10:06 AM CDT Pulse 107 09/11/2023 10:06 AM CDT Temperature 36.8 C (98.2 F) 09/11/2023 10:06 AM CDT Respiratory Rate 16 09/11/2023 10:06 AM CDT Oxygen Saturation 100% 09/11/2023 10:06 AM CDT Inhaled Oxygen Concentration - - Weight 112 kg (246 lb 14.6 oz) 09/10/2023 9:50 P M CDT Height 165.1 cm (5' 5) 09/10/2023 9:50 PM CDT Body Mass Index 41.09 09/10/2023 9:50 PM CDT Plan of Treatment Health Maintenance Due Date Last Done Comments Cervical Cancer Screening Pa p Smear (Age 30 to 64) Every 3 Years 1993 Annual Physical 1996 DTaP, Tdap and Td Vaccines ( 1 - Tdap) 2012 Hepatitis B Vaccines (1 of 3 - 19+ 3-dose series) 2012 HPV Vaccines (1 - 3-dose SCD M series) 2020 Cervical Cancer Screening Pa p with HPV Testing (Age 30 to 64) Every 5 Years 08/31/2023 Cervical Cancer Screening with HPV 08/31/2023 COVID-19 Vaccine ( - 2024-2 6 season) 2024 Influenza Adult (#1) 2025 Hepatitis C Completed 02/13/2023 Hepatitis A Vaccines Aged Out No long er eligible based on patient's age to complete this topic Meningococcal B Vaccine Aged Out No l onger eligible based on patient's age to complete this topic Meningococcal Vaccine Aged Out No franck anne eligible based on patient's age to complete this topic Pneumococcal Vaccine: Pediat rics (0 to 5 Years) and At-Risk Patients (6 to 49 Years) Aged Out No longer eligi ble based on patient's age to complete this topic RSV Immunizations Under 20 Months Aged Out No longer eligible based on patient's age to complete this topic Procedures Procedure Name Priority Date/Time Associated Diagnosis Comments HEPATITIS C ANTIBODY Routine 02/13/2023 from Last 3 Months or Most Recently Relevant to Health Maintenance Results * HEPATITIS C ANTIBODY (02/13/2023) HEPATITIS C AB NEGATIVE Perla Diggs DO LABORATORY Final Resu lt from Last 3 Months or Most Recently Relevant to Health Maintenance Insurance Advance Directives * Full Code (Latest Code Status on File) Date Activated Date Inactivated Comments 09/10/2023 10:10 PM 09/11/2023 3:49 PM
[2025-03-28 13:14] VITALS: BP 137/87; PULSE 108; RESP 18; O2SAT 99
[2025-03-28 13:44] LABS: Hematocrit 36.6 % (37.0-47.0); Hemoglobin 12.1 g/dL (12.0-15.0); Immature Granulocyte Percent A 0.3 % (0-0.5); Lymphocytes Absolute Auto 1.57 K/mm3 (0.9-3.2); Mean Corpuscular HGB Conc 33.1 g/dl (32-36); Mean Corpuscular Hemoglobin 29.0 pg (26-34); Mean Corpuscular Volume 87.8 fl (80-100); Nucleated Red Blood Cells Absolute Auto 0.000 K/mm3 (0.0-0.012); Nucleated Red Blood Cells Perc 0.0 % (0.0-0.2); Platelet Count Result 327 k/mm3 (150-375); Red Blood Count 4.17 M/mm3 (4.2-5.4); White Blood Count 12.1 K/mm3 (4.5-10.0)
[2025-03-28 14:02] LABS: Anion Gap 5 mmol/L (4-12); Blood Urea Nitrogen 5 mg/dL (7-17); Calcium 9.2 mg/dL (8.4-10.2); Carbon Dioxide 23 mmol/L (22-30); Chloride 105 mmol/L (98-107); Estimated CRCL calculation 182 ml/min; Estimated Glomerular Filt Rate > 60; Glucose 107 mg/dL (65-110); Potassium 3.4 mmol/L (3.4-5.0); Sodium 133 mmol/L (137-145)
--- NOTE | 2025-03-28 16:52 | ED_ITS ---
HPI - Fall General Chief Complaint: Fall Stated Complaint: fall Time Seen by Provider: 03/28/25 12:08 Source: patient and family Mode of arrival: ambulatory Limitations: no limitations History of Present Illness HPI Narrative: 29-year-old 3 better to about 24 weeks of gestation of O-negative here with a complains of fall. Patient states that she slipped and fell on ice on abdomen. One here for a checkup. She presently denies any head neck injuries. No vaginal bleeding. patient states that she follows with [facility] at [place] complaint: fall Fall from: standing Fall witnessed: yes, by family Place fall occurred: home Loss of consciousness: none Review of Systems 2 Review of Systems: All systems reviewed & are unremarkable except as noted in HPI and below Constitutional: Constitutional: Reports no additional constitutional complaints Eyes: Eyes: Reports no additional eye complaints ENT: Reports system reviewed and no additional complaints, except as documented Cardiovascular: Cardiovascular: Reports no additional cardiovascular complaints Respiratory: Respiratory: Reports no additional respiratory complaints Gastrointestinal: Gastrointestinal: Reports no additional gastrointestinal complaints Genitourinary: Genitourinary: Reports no additional female genitourinary complaints Musculoskeletal: Musculoskeletal: Reports no additional musculoskeletal complaints Exam 2 Narrative: GENERAL: Well-appearing, well-nourished, and in no acute distress. HEAD: Normocephalic, atraumatic. EYES: PERRLA and EOMI. ENT: Nares clear, no rhinorrhea or epistaxis. Mucous membranes moist. NECK: Supple. CHEST: Clear to auscultation. No respiratory distress. HEART: Regular rate and rhythm. No murmur heard. Normal peripheral pulses. ABDOMEN: Soft, nontender, nondistended, normal active bowel sounds. EXTREMITIES: Normal range of motion. No edema. SKIN: Warm, dry, no rash. NEURO: No focal deficits. Alert and oriented x3. PSYCH: Normal mood and affect. Course Course Emergency Course: Pt is comfortably resting ,NST was done in the ER no acute findings , Her KB is neg so indication for Rhogam , i did consult with Dr. Nelson agrees with plan recommeneded to follow with her OB Vital Signs Vital signs: Vital Signs Temperature 36.6 C 03/28/25 12:06 Pulse Rate 117 H 03/28/25 12:06 Respiratory Rate 18 03/28/25 12:06 Blood Pressure 158/116 H 03/28/25 12:06 Pulse Oximetry 100 03/28/25 12:06 Oxygen Delivery Room Air 03/28/25 12:06 Temperature 36.6 C 03/28/25 12:06 Pulse Rate 108 H 03/28/25 13:14 Respiratory Rate 18 03/28/25 13:14 Blood Pressure 137/87 03/28/25 13:14 Pulse Oximetry 99 03/28/25 13:14 Oxygen Delivery Room Air 03/28/25 12:06 - Fall Lab Data 03/28/25 13:20 03/28/25 13:20 Labs: Lab Results 03/28/25 Range/Units 13:20 WBC 12.1 H (4.5-10.0) K/mm3 RBC 4.17 L (4.2-5.4) M/mm3 Hgb 12.1 (12.0-15.0) g/dL Hct 36.6 L (37.0-47.0) % MCV 87.8 (80-100) fl MCH 29.0 (26-34) pg MCHC 33.1 (32-36) g/dl RDW 13.5 (11.5-14.5) % Plt Count 327 (150-375) k/mm3 MPV 9.5 (7.4-10.4) fl Immature Gran % (Auto) 0.3 (0-0.5) % Neut % (Auto) 82.4 H (45.5-73.1) % Lymph % (Auto) 12.9 L (18.3-44.2) % Alexander % (Auto) 4.0 (2.6-8.5) % Eos % (Auto) 0.2 (0-4.4) % Baso % (Auto) 0.2 (0.2-1.2) % Lymph # (Auto) 1.57 (0.9-3.2) K/mm3 Alexander # (Auto) 0.5 (0.1-0.6) K/mm3 Eos # (Auto) 0.0 (0-0.3) K/mm3 Baso # (Auto) 0.0 (0.0-0.1) K/mm3 Abs Immat Gran (auto) 0.04 H (0.00-0.031) K/mm3 Absolute Neuts (auto) 10.0 H (1.3-6.7) K/mm3 Absolute Nucleated RBC 0.000 (0.0-0.012) K/mm3 Nucleated RBC % 0.0 (0.0-0.2) % Sodium 133 L (137-145) mmol/L Potassium 3.4 (3.4-5.0) mmol/L Chloride 105 (98-107) mmol/L Carbon Dioxide 23 (22-30) mmol/L Anion Gap 5 (4-12) mmol/L BUN 5 L (7-17) mg/dL Creatinine 0.46 L (0.7-1.0) mg/dL Estim Creat Clear Calc 182 ml/min Estimated GFR > 60 (59 - ) Glucose 107 (65-110) mg/dL Calcium 9.2 (8.4-10.2) mg/dL Beta HCG, Quant 03326.00 mIU/ML KB Hemoglobin Negative Discharge Plan Discharge Clinical Impression: Fall, Intrauterine Patient Disposition: Home Condition: Stable Instructions: Contusion in Adults (ED) Patient Language: Hebrew Follow-up/Referrals: Zaire Nelson MD [Physician, [facility]] PHYSICIAN NOT ON STAFF,NONSTAFF [Primary Care Provider] Time of Disposition: 17:23
== END 2025-03-28 18:24 | disposition home or self-care (01) ==
PROVIDERS: Emergency Provider Family Medicine
DX: O9A.212 Injury, poisoning and certain other consequences of external causes complicating pregnancy, second trimester (principal); S39.91XA Unspecified injury of abdomen, initial encounter; Z3A.24 24 weeks gestation of pregnancy; W00.0XXA Fall on same level due to ice and snow, initial encounter
CPT/HCPCS: 36415; 80048; 84702; 85025; 85460; 99283